=== PATIENT | male | born 1995 | race Native Hawaiian/Other Pacific Islander ===

== ENCOUNTER 2016-08-12 20:05 | Emergency (ER) | payer OTHER ==
[~2016-08-12] VITALS: Ht 172.7 cm; Wt 81.6 kg
[2016-08-12 21:46] LABS: PLATELET COUNT 243 K/uL (142-355)
[2016-08-12 21:49] LABS: POTASSIUM 3.5 mmol/L (3.6-5.2); SODIUM 141 mmol/L (136-145)
== END 2016-08-13 13:14 | disposition other institution (70) ==
LOC: ED 20:05
PROVIDERS: Specialist
DX: R45.851 Suicidal ideations (principal); F32.89 Other specified depressive episodes
CPT/HCPCS: 36415; 80048; 80307; 80320; 80329; 85027; 99285; G0479